=== PATIENT | female | born 1980 | race Caucasian/White ===

== ENCOUNTER 2023-04-16 07:00 | Inpatient (IN) | payer OTHER ==
[2023-04-16] MEDS ORDERED: AMPICILLIN SODIUM 2 GM VIAL ONE (08:34)
[2023-04-16 08:43] VITALS: BMI 27.3
[2023-04-16] MEDS ORDERED: OXYTOCIN 30 UNITS in 0.9% NS 30 UNIT/500 ML INFUS.BAG IVPB ONE (08:51)
[2023-04-16] MEDS ORDERED: OXYTOCIN 30 UNITS in 0.9% NS 30 UNIT/500 ML INFUS.BAG IVPB SCH (09:00)
[2023-04-16] MEDS ORDERED: AMPICILLIN - 2 GM in SODIUM CHLORIDE 100 ML IVPB ONE (09:00)
[2023-04-16] MEDS ORDERED: DEXTROSE 5%-LACTATED RINGERS 1,000 ML IV SCH (09:00)
[2023-04-16 09:25] LABS: BASO % 0.7 % (0-2.0); EOS % 0.5 % (0-4.5); HEMATOCRIT 40.3 % (32.4-45.2); HEMOGLOBIN 12.8 GM/dL (10.7-15.3); LYMPH % 19.3 % (8-40); MCH 27.1 pg (25.7-33.7); MCHC 31.6 g/dl (32.0-36.0); MEAN CELL VOLUME 85.7 fl (80-96); MEAN PLT VOLUME 9.9 fl (7.5-11.1); MONO % 4.4 % (3.8-10.2); NEUT % 75.1 % (42.8-82.8); PLATELET COUNT 201 10^3/uL (134-434); RDW 13.8 % (11.6-15.6); WHITE BLOOD COUNT 7.6 K/mm3 (4.0-10.0)
[2023-04-16 09:29] LABS: INR 0.94 (0.83-1.09); PROTHROMBIN TIME (PATIENT) 10.9 SEC (9.7-13.0)
[2023-04-16 09:32] LABS: ACTIVATED PTT 24.3 SECONDS (25.2-36.5)
[2023-04-16 10:06] LABS: POTASSIUM 3.9 mmol/L (3.5-5.1)
[2023-04-16 10:07] LABS: CALCIUM 8.3 mg/dL (8.5-10.1)
[2023-04-16 10:08] LABS: BLOOD UREA NITROGEN 7.7 mg/dL (7-18)
[2023-04-16 10:11] LABS: CREATININE 0.5 mg/dL (0.55-1.3)
[2023-04-16] MEDS ORDERED: ONDANSETRON 4 MG/2 ML VIAL ONE (10:54)
[2023-04-16] MEDS ORDERED: ceFAZolin SODIUM 1 GM VIAL ONE (10:54)
[2023-04-16] MEDS ORDERED: OXYTOCIN 10 UNITS/ML VIAL ONE (11:09)
[2023-04-16] MEDS ORDERED: KETOROLAC TROMETHAMINE 30 MG/1 ML VIAL ONE (11:31)
[2023-04-16] MEDS ORDERED: DEXAMETHASONE SOD PHOSPHATE 4 MG/1 ML VIAL ONE (11:31)
[2023-04-16] MEDS ORDERED: ONDANSETRON 4 MG/2 ML VIAL IVPB PRN (11:51)
[2023-04-16] MEDS ORDERED: oxyCODONE HCL 5 MG TABLET PO PRN (11:51)
[2023-04-16 12:09] LABS: CORD HCO3 23.6 mmHg (20-29); CORD PCO2 77.6 mmHg (30-78)
[2023-04-16 12:10] LABS: CORD BASE EXCESS -6.2 mmol/L (0-2); CORD HCO3 22.3 mmHg (20-29); CORD PCO2 55.6 mmHg (30-78); CORD pH 7.222 (7.14-7.44)
[2023-04-16] MEDS ORDERED: OXYTOCIN 20 UNITS in 0.9% NS 20 UNIT/1,000 ML INFUS.BAG IV ONE (12:16)
[2023-04-16] MEDS: OXYTOCIN 20 UNITS in 0.9% NS 20 UNIT/1,000 ML INFUS.BAG IV SCH (12:45)
[2023-04-16] MEDS ORDERED: AMPICILLIN - 1 GM in SODIUM CHLORIDE 100 ML IVPB SCH (13:00)
[2023-04-16] MEDS ORDERED: HYDROmorphone *PCA* 10MG/50ML DISP.SYRIN PCA SCH (13:00)
[2023-04-16] MEDS ORDERED: HYDROmorphone HCl 2 MG/ML VIAL IVPB ONE (13:00)
[2023-04-16 13:44] LABS: HIV INTERPRETATION NEGATIVE (NEGATIVE)
[2023-04-16] MEDS: IBUPROFEN 800 MG/8 ML IJ IVPB SCH ×2 (14:34→20:33)
[2023-04-16] MEDS: ACETAMINOPHEN 1000 MG/100 ML BAG IVPB SCH ×2 (15:44→17:26)
[2023-04-16] MEDS: CEFAZOLIN SODIUM 2 GM in DEXTROSE 5%-WATER 100 ML IVPB SCH (18:06)
[2023-04-16] MEDS: SENNOSIDES/DOCUSATE COMBO (SENNA PLUS) TABLET (UD) PO SCH (21:26)
[2023-04-17] MEDS: ACETAMINOPHEN 1000 MG/100 ML BAG IVPB SCH ×2 (00:43→06:27)
[2023-04-17] MEDS: CEFAZOLIN SODIUM 2 GM in DEXTROSE 5%-WATER 100 ML IVPB SCH ×2 (02:33→11:10)
[2023-04-17] MEDS: OXYTOCIN 20 UNITS in 0.9% NS 20 UNIT/1,000 ML INFUS.BAG IV SCH (02:36)
[2023-04-17] MEDS: IBUPROFEN 800 MG/8 ML IJ IVPB SCH (04:04)
[2023-04-17 07:03] LABS: BASO % 0.3 % (0-2.0); EOS % 0.4 % (0-4.5); HEMOGLOBIN 11.6 GM/dL (10.7-15.3); MCH 27.7 pg (25.7-33.7); MCHC 32.3 g/dl (32.0-36.0); MEAN CELL VOLUME 85.9 fl (80-96); NEUT % 75.3 % (42.8-82.8); PLATELET COUNT 183 10^3/uL (134-434); WHITE BLOOD COUNT 11.5 K/mm3 (4.0-10.0)
[2023-04-17] MEDS ORDERED: BISACODYL 10 MG SUPP.RECT RC PRN (11:52)
[2023-04-17] MEDS ORDERED: ACETAMINOPHEN 325 MG TABLET (FP) PO PRN (12:00)
[2023-04-17] MEDS: IBUPROFEN 600 MG TABLET (FP) PO PRN ×2 (12:01→17:57)
[2023-04-17] MEDS: SIMETHICONE 80 MG TAB.CHEW (FP) PO PRN ×2 (12:02→17:57)
[2023-04-17] MEDS: ACETAMINOPHEN 500 MG TABLET (FP) PO PRN ×2 (13:25→19:07)
[2023-04-17] MEDS: SENNOSIDES/DOCUSATE COMBO (SENNA PLUS) TABLET (UD) PO SCH (21:14)
[2023-04-18] MEDS: IBUPROFEN 600 MG TABLET (FP) PO PRN ×2 (00:34→08:17)
[2023-04-18] MEDS: SIMETHICONE 80 MG TAB.CHEW (FP) PO PRN ×2 (00:34→08:17)
[2023-04-18] MEDS: ACETAMINOPHEN 500 MG TABLET (FP) PO PRN ×2 (04:20→12:07)
[2023-04-18 08:29] VITALS: BP 134/73; PULSE 71; RESP 18; TEMP 98.3
== END 2023-04-18 14:40 | disposition home or self-care (01) | DRG 540 ==
LOC: JLDR 07:00 → J3W 13:30
PROVIDERS: ADMIT Obstetrics & Gynecology; ATTEND Obstetrics & Gynecology
PROC: 10D00Z1 Extraction of Products of Conception, Low, Open Approach (ICD-10-PCS; principal; 2023-04-16)
DX: O36.8330 Maternal care for abnormalities of the fetal heart rate or rhythm, third trimester, not applicable or unspecified (principal); O48.0 Post-term pregnancy; Z3A.40 40 weeks gestation of pregnancy; Z37.0 Single live birth
CPT/HCPCS: 36415; 36600; 80048; 82803; 85025; 85610; 85730; 86780; 86850; 86900; 86901; 87389; 88307-TC